=== PATIENT | male | born 1970 | race Caucasian/White ===

== ENCOUNTER 2018-01-29 17:37 | Emergency (ER) | payer OTHER ==
--- NOTE | 2018-01-29 17:42 | EDPHY ---
H & P Time Seen by Provider: 01/29/18 17:39 Constitutional: Initial Vital Signs Temperature (C) 36.5 C 01/29/18 18:25 Heart Rate 75 01/29/18 18:25 Respiratory Rate 16 01/29/18 18:25 Blood Pressure 171/118 H 01/29/18 18:25 O2 Sat (%) 97 01/29/18 18:25 O2 Delivery Mode Non-Rebreather Mask O2 (L/minute) 15 Allergies/Adverse Reactions: Sulfa (Sulfonamide Antibiotics) Allergy (Verified 01/29/18 18:31) Home Medications: Medication Instructions Recorded Ritalin 10mg (*) 01/29/18 Medical Decision Making - Diagnostics Imaging Results: Imaging Impressions Shoulder X-Ray 01/29/18 17:40 Impression: Anterior shoulder dislocation. Shoulder X-Ray 01/29/18 18:39 Impression: Interval reduction of the previously described anteriorly dislocated left shoulder. The posterior humeral head and inferior glenoid are poorly visualized. Consider follow-up MRI left shoulder to better evaluate. Imaging: Discussed imaging studies w/ house calls nurse Radiologist, I viewed and interpreted images myself ED Course/Re-evaluation: CHIEF COMPLAINT: Shoulder injury HISTORY OF PRESENT ILLNESS: The patient is a 47 y/o male arriving via EMS for a left shoulder injury after a fall snowboarding at [employer]. He reports pain in the joint. He denies any other injury, numbness in the hand, or any other associated symptoms. He denies loss of consciousness or head injury. He denies history of injury in the left shoulder. REVIEW OF SYSTEMS: A 10 point review of systems was performed and is negative with the exception of the elements mentioned in the history of present illness. PHYSICAL EXAM: HR, BP, O2 Sat, RR. Temp noted General Appearance: Alert, well hydrated, appropriate, and non-toxic appearing. Head: Atraumatic without scalp tenderness or obvious injury Eyes: Pupils equal, round, reactive to light and accommodation, EOMI, no trauma , no injection. Ears: Clear bilaterally, no perforation, normal landmarks Nose: Atraumatic, no rhinorrhea, clear. Throat: There is no erythema or exudates, no lesions, normal tonsils, mucus membranes moist. Neck: Supple, 2+ carotid upstroke, nontender, no lymphadenopathy. Respiratory: No retractions, no distress, no wheezes, and no accessory muscle use. Lungs are clear to auscultation bilaterally. Cardiovascular: Regular rate and rhythm, no murmurs, rubs, or gallops. Bilateral carotid, radial, dorsalis pedis, and posterior tibial pulses intact. Good capillary refill all extremities. Gastrointestinal: Abdomen is soft, nontender, non-distended, no masses, no rebound, no guarding, no peritoneal signs. Musculoskeletal: Left shoulder deformity. ROM not tested due to suspected dislocation Neurological: Alert, appropriate, and interactive. The patient has normal DTRs and non-focal cranial nerves, motor, sensory, and cerebellar exam. Skin: No rashes, good turgor, no nodules on palpation. 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 The patient's vitals signs and mental status are appropriate. The risks, benefits and alternatives of the sedation were discussed with the patient. The patient is ASA classification 1. The patient's Mallampati airway score was 1 and the patient did meet the 3-3-2 airway measurements. A time out was completed. The patient was sedated with 100 mg propofol. The patient was monitored with continuous pulse oximetry, monitor and storage bin tender and end tidal CO2. There were no complications and no significant hypoxemia. I performed both the sedation and the procedure. The total time I spent at the bedside during the procedural sedation was [ ] minutes. The patient was examined after the procedural sedation and has returned to their pre-sedation baseline with normal vital signs and a normal examination. Procedure: Reduction of dislocated shoulder Time-out completed immediately before the procedure. IV established. O2 administered. Placed on pulse oximeter and [id number]. Neurovascular exam intact pre-procedure. Given 100 mg propofol for pain and sedation. The left shoulder was reduced using traction-countertraction. Reassessed post-procedure. Neurovascular status intact- normal median, radial, ulnar and axillary nerve motor and sensory exam. Exam indicated reduction. Confirmed reduction on X-ray. Arm sling applied. The procedure was performed by myself, Dr. Cabrera. DIFFERENTIAL DIAGNOSIS: The differential diagnosis for this patient's left shoulder deformity and pain included but was not limited to dislocation, fracture, sprain, or soft tissue injury. MEDICAL DECISION MAKING: The patient presents with a left shoulder deformity after a snowboarding fall. He denies any other pain or trauma. He denies hitting his head or losing consciousness. Plan for X-ray. X-ray indicates that his shoulder is dislocated without any fractures. Plan for sedation and reduction. Left shoulder was reduced under sedation as described in the procedure notes.I remained in the room until he was conscious and talking. X-ray confirmed that shoulder has been reduced. I feel he can be released in a sling with follow up with ortho. He lives in [place] and will follow up there. - Data Points Medications Given: Discontinued Medications Propofol (Diprivan) 100 mg IVP EDNOW ONE Stop: 01/29/18 18:39 Last Admin: 01/29/18 18:39 Dose: 100 mg Departure - Departure Disposition: Home, Routine, Self-Care Clinical Impression: Dislocation of left shoulder joint Qualifiers: Encounter type: initial encounter Qualified Code(s): S43.005A - Unspecified dislocation of left shoulder joint, initial encounter Condition: Good Instructions: Shoulder Dislocation (ED) Additional Instructions: 1. Please wear sling until you see orthopedic surgeon in [place]. 2. Return to the emergency department for any worsening of condition. Referrals: Pranav Atkins MD [Medical Doctor] - As per Instructions Report Scribed for: Rojelio Cabrera Report Scribed by: Pat Davies Date of Report: 01/29/18 Time of Report: 22:22
[2018-01-29] MEDS ORDERED: PROPOFOL/EMULSION 500 MG/50 ML BOTTLE IV ONE (18:26)
[2018-01-29 18:38] VITALS: TEMP 97.3
[2018-01-29] MEDS ORDERED: PROPOFOL 200 MG/20 ML VIAL IVP ONE (18:38)
[2018-01-29 19:00] VITALS: BP 176/123; PULSE 67; RESP 18; O2SAT 100
== END 2018-01-29 19:21 | disposition home or self-care (01) ==
PROC: 0RSKXZZ Reposition Left Shoulder Joint, External Approach (ICD-10-PCS; principal; 2018-01-29)
DX: S43.005A Unspecified dislocation of left shoulder joint, initial encounter (principal); V00.311A Fall from snowboard, initial encounter; Y99.8 Other external cause status; Y93.23 Activity, snow (alpine) (downhill) skiing, snowboarding, sledding, tobogganing and snow tubing
CPT/HCPCS: 96374; J2704